=== PATIENT | female | born 1990 | race Caucasian/White ===

== ENCOUNTER 2016-08-19 19:06 | Emergency (ER) | payer OTHER ==
--- NOTE | 2016-08-19 20:22 | ER Document Report ---
ED Medical Screen (RME) - General Chief Complaint: Head Injury Stated Complaint: HEAD INJURY AT WORK Time seen by provider: 20:18 Mode of Arrival: Ambulatory Notes: 26-year-old female presents to ED head injury. States she was dizzy at work last night and does not remember the drive home states she was swaying when she went to go home states she was dizzy in the shower and had to hold to the sides and became a little nauseated but did not vomit states she's having a lot of trouble focusing today states she is still dizzy. Consulted Dr. Duke if he stated to do a head CT so one was ordered. I have greeted and performed a rapid initial assessment of this patient. A comprehensive ED assessment and evaluation of the patient, analysis of test results and completion of medical decision making process will be conducted by an additional ED providers. Physical Exam - Vital signs Vitals: Temp Pulse Resp BP Pulse Ox 98.1 F 76 16 104/48 L 100 08/19/16 20:12 08/19/16 20:12 08/19/16 20:12 08/19/16 20:12 08/19/16 20:12 Course - Vital Signs Vital signs: Temp Pulse Resp BP Pulse Ox 98.1 F 76 16 104/48 L 100 08/19/16 20:12 08/19/16 20:12 08/19/16 20:12 08/19/16 20:12 08/19/16 20:12
[2016-08-19] MEDS ORDERED: IBUPROFEN 600 MG TABLET PO ONE (21:44)
--- NOTE | 2016-08-19 21:49 | ER Document Report ---
ED Head/Face/Scalp Injury - General Chief Complaint: Head Injury Stated Complaint: HEAD INJURY AT WORK Time seen by provider: 21:43 Mode of Arrival: Ambulatory Information source: Patient Notes: 26-year-old female presented to ED for head injury. She stated that a stack of boxes fell onto her head last night at work. She states she was a little dizzy at work and on her drive home. She states she's been a little dizzy today. Her head CT was negative TRAVEL OUTSIDE OF THE [place] IN LAST 30 DAYS: No - HPI Patient complains to provider of: Contusion, Pain Injury to: Head Location of problem: Head Occurred: Yesterday Where: Work Timing: Still present Context: Other - Boxes fell on her head Loss consciousness: No loss of consciousness Remembers: Injury, Coming to hospital - Related Data Allergies/Adverse Reactions: No Known Allergies Allergy (Unverified 08/19/16 20:18) Past Medical History - General Information source: Patient - Social History Smoking Status: Never Smoker Chew tobacco use (# tins/day): No Frequency of alcohol use: None Drug Abuse: None Occupation: [employer] Lives with: Friend Family History: Other - She is adopted and so is her mother does not know family history Patient has suicidal ideation: No Patient has homicidal ideation: No - Past Medical History Cardiac Medical History: Reports: None Pulmonary Medical History: Reports: None EENT Medical History: Reports: None Neurological Medical History: Reports: None Endocrine Medical History: Reports: None Renal/ Medical History: Reports: None Malignancy Medical History: Reports: None GI Medical History: Reports: None Musculoskeltal Medical History: Reports None Skin Medical History: Reports None Psychiatric Medical History: Reports: Hx Anxiety - With panic disorder Traumatic Medical History: Reports: None Infectious Medical History: Reports: None Surgical Hx: Negative Past Surgical History: Reports: None - Immunizations Immunizations up to date: No Hx Diphtheria, Pertussis, Tetanus Vaccination: No History of Influenza Vaccine for 03/2016 - 08/2016 Season: Yes Review of Systems - Review of Systems Constitutional: No symptoms reported EENT: No symptoms reported Cardiovascular: Dizziness Respiratory: No symptoms reported Gastrointestinal: Nausea Genitourinary: No symptoms reported Female Genitourinary: No symptoms reported Musculoskeletal: No symptoms reported Skin: No symptoms reported Hematologic/Lymphatic: No symptoms reported Neurological/Psychological: Headaches Physical Exam - Vital signs Vitals: Temp Pulse Resp BP Pulse Ox 98.1 F 76 16 104/48 L 100 08/19/16 20:12 08/19/16 20:12 08/19/16 20:12 08/19/16 20:12 08/19/16 20:12 Interpretation: Normal - General General appearance: Appears well, Alert - HEENT Head: Normocephalic, Atraumatic, Tenderness - Tenderness to the very top of her head. No: Abrasions, Brooks's sign, Ecchymosis, Open wounds, [place]'s eyes Eyes: Normal Pupils: PERRL - Respiratory Respiratory status: No respiratory distress Chest status: Nontender Breath sounds: Normal Chest palpation: Normal - Cardiovascular Rhythm: Regular Heart sounds: Normal auscultation Murmur: No - Abdominal Inspection: Normal Distension: No distension Bowel sounds: Normal Tenderness: Nontender Organomegaly: No organomegaly - Back Back: Normal, Nontender - Extremities General upper extremity: Normal inspection, Nontender, Normal color, Normal ROM , Normal temperature General lower extremity: Normal inspection, Nontender, Normal color, Normal ROM , Normal temperature, Normal weight bearing. 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 Course - Re-evaluation Re-evalutation: 08/19/16 21:[address] results with patient and written report given to patient for follow -up with her primary doctor. Patient given a prescription for ibuprofen and was given ibuprofen in the ED. Cranial nerves grossly intact patient alert and oriented walking talking. - Vital Signs Vital signs: Temp Pulse Resp BP Pulse Ox 98.1 F 76 16 104/48 L 100 08/19/16 20:12 08/19/16 20:12 08/19/16 20:12 08/19/16 20:12 08/19/16 20:12 - Diagnostic Test Radiology reviewed: Image reviewed, Reports reviewed Discharge - Discharge Clinical Impression: Head contusion Qualifiers: Encounter type: initial encounter Contusion of head detail: scalp Qualified Code(s): S00.03XA - Contusion of scalp, initial encounter Condition: Stable Disposition: HOME, SELF-CARE Instructions: Family Physicians / Practices Additional Instructions: HEAD INJURY PRECAUTIONS: At this point, there is no evidence that your head injury is serious. Observation is necessary, however. Take only clear liquids for the first few hours, unless told otherwise by the doctor. If no pain medication was prescribed, you may take acetaminophen according to the directions on the bottle. Do not take any medication that may alter your level of alertness (unless you've discussed it with the doctor first) . Limit activity for the first 24 hours. Bed rest is best. During the first 24 hours, check to see approximately every two to three hours that the patient is easily arousable, responds normally, and can perform common tasks such as walking without difficulty. Contact your doctor or go to the hospital if any of the following things occur: Persistent vomiting, difficulty in arousing the patient, worsening or continued headache, or failure to improve as expected. Head injuries can cause symptoms that persist for a few days or even a few weeks. CONTUSION: Your injury has resulted in a contusion -- a crushing of the deep tissues. No injury to important structures was detected during the physician's exam. Contusions vary in the amount of pain they cause, and in the length of time required for healing. Typically, the area will become bruised, and will remain painful to touch for two or three weeks. However, most patients are back to working and playing within a few days. After the initial period of rest and cold-packs, your symptoms (together with the doctor's recommendations) will determine how rapidly you can get back to full activity. Usually this means "do what feels okay, but don't do things that hurt." If re-examination was recommended, it's important to follow up as instructed. Call the doctor or return any time if pain increases, if swelling becomes severe, if you develop numbness or weakness in an injured extremity, or if any other alarming symptoms occur. USE OF TYLENOL (ACETAMINOPHEN): Acetaminophen may be taken for pain relief or fever control. It's much safer than aspirin, offering a wider range of "safe" dosages. It is safe during . Some brand names are Tylenol, Panadol, Datril, Anacin 3, Tempra, and Liquiprin. Acetaminophen can be repeated every four hours. The following are maximum recommended dosages: WEIGHT Dose Drops Elixir Chewable( 80mg) (LBS.) drprs=droppers tsp=teaspoon 6 40 mg 0.4 ml (1/2) 6-11 80 mg 0.8 ml (full) tsp 1 tab 12-16 120 mg 1 1/2 drprs 3/4 tsp 1 1/2 tabs 17-23 160 mg 2 drprs 1 tsp 2 tabs 24-30 240 mg 3 drprs 1 1/2 tsp 3 tabs 30-35 320 mg 2 tsp 4 tabs 36-41 360 mg 2 1/4 tsp 4 1/2 tabs 42-47 400 mg 2 1/2 tsp 5 tabs 48-53 480 mg 3 tsp 6 tabs 54-59 520 mg 3 1/4 tsp 6 1/2 tabs 60-64 560 mg 3 1/2 tsp 7 tabs 65-70 600 mg 3 3/4 tsp 7 1/2 tabs 71-76 640 mg 4 tsp 8 tabs 77-82 720 mg 4 1/2 tsp 9 tabs 83-88 800 mg 5 tsp 10 tabs >89 pounds or adults 650 mg to 900 mg Acetaminophen can be repeated every four hours. Maximum dose not to exceed 4000 mg a day. These maximum recommended dosages are slightly higher than the dosages written on the product container, but these dosages are very safe and below the toxic dosage for acetaminophen. ICE PACKS: Apply ice packs frequently against the painful area. Many different schedules are recommended, such as "20 minutes on, 20 minutes off" or "one hour ice, two hours rest." If you need to work, you may need to go longer between ice treatments. You should plan to have the area ice packed AT LEAST one fourth of the time. The ice should be applied over the wrap, tape, or splint, or over a layer of cloth -- not directly against the skin. Some ice bags have a built-in cloth and can be put directly on the skin. FOLLOW-UP CARE: If you have been referred to a physician for follow-up care, call the physician s office for an appointment as you were instructed or within the next two days. If you experience worsening or a significant change in your symptoms, notify the physician immediately or return to the Emergency Department at any time for re-evaluation. Prescriptions: Ibuprofen 600 mg PO Q8HP PRN #20 tablet PRN Reason:
[2016-08-19 21:50] VITALS: BP 110/68
== END 2016-08-19 21:50 | disposition home or self-care (01) ==
LOC: ER 19:06
DX: S00.03XA Contusion of scalp, initial encounter (principal); R42 Dizziness and giddiness; W19.XXXA Unspecified fall, initial encounter
CPT/HCPCS: 70450; 99283